=== PATIENT | female | born 1965 | race Caucasian/White ===

== ENCOUNTER 2019-02-24 18:59 | Emergency (ER) | payer MEDICAID, OTHER ==
[~2019-02-24] VITALS: Ht 160 cm; Wt 81.2 kg
[2019-02-24 19:16] VITALS: BP 138/86; PULSE 86; RESP 18; Ht 160 cm; Wt 81.2 kg
[2019-02-24] MEDS ORDERED: KETOROLAC 60 MG INJ IM STA (19:40)
[2019-02-24] MEDS ORDERED: AMOXICILLIN/CLAV 875 MG TAB PO ONE (20:00)
[2019-02-24] MEDS ORDERED: DIPHTH/TET/ACEL PERTUSS (ADULT) 0.5 ML VIAL IM* ONE (20:00)
[2019-02-24] MEDS ORDERED: AMOX1TAB9 PO (20:39)
[2019-02-24] MEDS ORDERED: IBUP-1542 PO (20:40)
--- NOTE | 2019-02-24 21:10 | ERD ---
ER Documentation Chief Complaint Chief Complaint LEFT ANKLE DOG BITE X 1 HR CAT SCAN TECH HPI History of Present Illness: 53-year-old female who denies a past medical history coming in today with complaint of dog bite to left ankle that occurred 1 hour prior to arrival. Patient reports being in a neighborhood in which she c leans home in the female was walking her dog when the dog began to attacked patient. Tetanus status unknown. Patient reports attack was unprovoked. At home pharmacological/nonpharmacological treatment for symptoms: Denies Denies social concerns; Denies recent foreign travel ROS All systems reviewed and are negative except as per history of present illness. Medications Home Meds Active Scripts Ibuprofen* (Ibuprofen*) 600 Mg Tablet, 600 MG PO Q6H PRN for SWELLING/INFLAMMATION/PAIN, #30 TAB Prov:MAIRA ROLLINS NP 02/24/19 Amoxicillin/Potassium Clav (Amox-Clav 500-125 mg Tablet) 500-125 mg Tab, 1 TAB PO Q8 for DOG BITE/INFECTION PREVENTION for 7 Days, #21 TAB Prov:MAIRA ROLLINS NP 02/24/19 Allergies Allergies: Coded Allergies: No Known Allergy (Unverified , 01/27/14) PMhx/Soc Medical and Surgical Hx: pt denies Medical Hx, pt denies Surgical Hx History of Surgery: Yes () Anesthesia Reaction: No Hx Neurological Disorder: No Hx Respiratory Disorders: No Hx Cardiac Disorders: Yes (HTN) Hx Psychiatric Problems: No Hx Miscellaneous Medical Probl: No Hx Alcohol Use: No Hx Substance Use: No Hx Tobacco Use: No FmHx Family History: diabetes Physical Exam Vitals Vital Signs Date Temp Pulse Resp B/P (MAP) Pulse Ox O2 O2 Flow FiO2 Time Delivery Rate 02/24/19 98.3 86 18 138/86 99 19:16 (103) Physical Exam Const: No acute distress, afebrile Head: Atraumatic Eyes: Normal Conjunctiva ENT: Normal External Ears, Nose and Mouth. Neck: Full range of motion. No meningismus. Resp: Clear to auscultation bilaterally Cardio: Regular rate and rhythm, no murmurs Abd: Soft, non tender, non distended. No guarding, no masses, no rigidity Skin: No petechiae or rashes; puncture sites noted to lateral aspect of left malleus, bleeding controlled, no lacerations, no foreign body, positive tenderness to palpation Back: No midline or flank tenderness Ext: No cyanosis, or edema Neur: Awake and alert x3, speaking in clear sentences, no focal deficits or facial asymmetry Psych: Normal Mood and Affect Results 24 hrs Current Medications Medications Dose Sig/Andree Start Time Status Last (Trade) Ordered Route PRN Stop Time Admin Dose Reason Admin Ketorolac 60 mg ONCE STAT 02/24/19 DC 02/24/19 Tromethamine IM 19:40 20:50 (Toradol) 02/24/19 19:42 875 mg ONCE ONCE 02/24/19 DC 02/24/19 Amoxicillin/ PO 20:00 21:01 Clavulanate 02/24/19 20:01 Potassium (Augmentin) Diphtheria/ 0.5 ml ONCE ONCE 02/24/19 DC 02/24/19 Tetanus/Acell IM* 20:00 20:49 Pertussis 02/24/19 20:01 (Adacel) Procedures/MDM ED COURSE: ED course includes a thorough examination and history. The patient was stable throughout ED course. I kept the patient and/or family informed of laboratory and diagnostic imaging results throughout the ED course. ED course includes wound care. LABS: I do not feel labs are warranted MEDICATIONS GIVEN IN ER: Ketorolac, tetanus Patient tolerated medication well with no adverse reactions. Patient reported improvement in pain. DIAGNOSTIC IMAGING: I did not feel imaging was warranted at this time PROCEDURES: None. MEDICAL DECISION MAKING: Low suspicion for life-threatening medical emergency. Otherwise healthy patient presenting with constellation of symptoms likely representing dog bite of ankle as characterized by history, physical exam findings. Patient reassessment @ 2038: Wound care complete. Patient hemodynamically stable. No respiratory distress, otherwise relatively well appearing and nontoxic. Disposition given. Patient educated on diagnoses, prescriptions, follow-up care, return precautions. Strict return precautions given for worsening condition; questions answered discharge. Patient verbalizes understanding of discharge instructions. PRESCRIPTIONS FOR HOME: Augmentin, ibuprofen DISPOSITION: DISCHARGE At this time, patient is stable for discharge and outpatient management. I have instructed the patient to follow-up with his/her primary care physician in 1-2 days. I have discussed with the patient the possibility of needing to see a specialist for further workup and imaging studies if symptoms persist. I have instructed the patient to promptly return to the ER for any new or worsening symptoms including increased pain, fever, nausea, vomiting, weakness or LOC. The patient and/or family expressed understanding of and agreement with this plan. All questions were answered. Home care instructions were provided. DISCLAIMER: Inadvertent spelling and grammatical errors are likely due to EHR/dictation software use and do not reflect on the overall quality of patient care. Also, please note that the electronic time recorded on this note does not necessarily reflect the actual time of the patient encounter. Departure Diagnosis: Primary Impression: Dog bite of ankle Encounter type: initial encounter Laterality: left Qualified Codes: S91.052A - Open bite, left ankle, initial encounter; W54.0XXA - Bitten by dog, initial encounter Condition: Stable Patient Instructions: Dog Bite Ref[facility] Usted se govea hecho un examen mdico de control que le indica que no est en woody condicin que requiera tratamiento urgente en el Departamento de Emergencia. Un estudio ms profundo y el tratamiento de mistry condicin pueden esperar sin ningn riesgo hasta que usted sea atendida/o en el consultorio de mistry mdico o woody clnica. Es responsabilidad suya arreglar woody michael para el seguimiento del bruce. MANEJO DE CONDICIONES NO URGENTES EN EL FUTURO 1) Si usted tiene un mdico de atencin primaria: Usted debera llamar a mistry mdico de atencin primaria antes de venir al departamento de emergencia. Despus de las horas de consultorio, mistry doctor o mistry asociado/a est disponible por telfono. El mdico o enfermero de jimi en el servicio telefnico puede asesorarle por eun medio para atender el problema, o bruce contrario se puede programar woody michael. 2) Si usted no tiene un mdico de atencin primaria: Llame al mdico o clnica de referencia que aparece abajo damaris las horas de consultorio para hacer woody michael para que le vean. CLINICAS: [facility] [phone] [facility] [phone] [address] [facility] [phone] [address] [facility]. [facility] [phone] [address] [facility]. [facility] [phone] [facility] [phone] [address] [facility] [facility] () Usted se govea hecho un examen mdico de control que le indica que no est en woody condicin que requiera tratamiento urgente en el Departamento de Emergencia. Un estudio ms profundo y el tratamiento de mistry condicin pueden esperar sin ningn riesgo hasta que usted sea atendida/o en el consultorio de mistry mdico o woody clnica. Es responsabilidad suya arreglar woody michael para el seguimiento del bruce. MANEJO DE CONDICIONES NO URGENTES EN EL FUTURO 1) Si usted tiene un mdico de atencin primaria: Usted debera llamar a mistry mdico de atencin primaria antes de venir al departamento de emergencia. Despus de las horas de consultorio, mistry doctor o mistry asociado/a est disponible por telfono. El mdico o enfermero de jimi en el servicio telefnico puede asesorarle por eun medio para atender el problema, o bruce contrario se puede programar woody michael. 2) Si usted no tiene un mdico de atencin primaria: Llame al mdico o condado institucions de referencia que aparece abajo damaris las horas de consultorio para hacer woody michael para que le vean. SI USTED NO PUEDE PAGAR PARA DALILA UN MEDICO puede ir a: [facility] [id number] [place] [address] [facility] [address] [place] [address] [facility] [address] [place] [address] [facility] [address] [place] [place], [place] [id number] Additional Instructions: Muchas daniel por permitirnos participar en mistry cuidado. Mistry carolyn y seguridad es nuestra principal prioridad en [facility]. Es importante leer todas las instrucciones de beena y la educacin que se proporcionan en mistry paquete de beena. * Consulte a mistry mdico de atencin primaria en 2 a 4 sanchez para woody revisin de la herida. Existe un alto riesgo de infeccin con las mordeduras de alisson. * Llame a mistry mdico de atencin primaria MAANA para woody michael damaris los prximos 2 a 4 sanchez y lleve toda la informacin y los medicamentos recetados. Llene las recetas y siga exactamente las instrucciones de la etiqueta. Si los sntomas empeoran y mistry proveedor no est disponible, regrese inmediatamente al Departamento de Emergencias. ---- Thank you very much for allowing us to participate in your care. Your health and safety is our top priority at [facility]. It is important to read all discharge instructions and education provided in your discharge packet. *See your primary care doctor in 2 to 4 days for a wound recheck. There is a high risk of infection with dog bites.* Call your primary care doctor TOMORROW for an appointment during the next 2-4 days and bring all the information and medications prescribed. Have prescriptions filled and follow precisely the directions on the label. If the symptoms get worse and your provider is unavailable, return to the Emergency Department immediately. MAIRA ROLLINS NP Feb 24, 2019 21:10
== END 2019-02-24 21:07 | disposition home or self-care (01) ==
LOC: FTE 18:59
DX: S91.052A Open bite, left ankle, initial encounter (principal); I10 Essential (primary) hypertension; W54.0XXA Bitten by dog, initial encounter; Y92.9 Unspecified place or not applicable; Z23 Encounter for immunization
CPT/HCPCS: 90471; 90715; 96372; J1885; Z7502; Z7610